=== PATIENT | male | born 1975 | race Caucasian/White ===

== ENCOUNTER 2017-06-27 18:28 | Emergency (ER) | payer BC, OTHER ==
[2017-06-27 18:44] VITALS: BP 131/83
--- NOTE | 2017-06-27 18:49 | EDM.PDOC ---
ED HPI GENERAL MEDICAL PROBLEM - General Chief Complaint: Laceration Stated Complaint: LACERATION TO HEAD Time Seen by Provider: 06/27/17 18:43 Source of Information: Reports: Patient History Limitations: Reports: No Limitations - History of Present Illness INITIAL COMMENTS - FREE TEXT/NARRATIVE: Patient was under his plane at his shop when he jillian and struck the right front side of his head. It did start to bleed. No LOC, no memory loss. No headache , nausea, or vomiting. No other complaints. Onset: Today, Sudden Location: Reports: Head Quality: Reports: Ache, Dull Severity: Mild - Related Data Allergies Allergy/AdvReac Type Severity Reaction Status Date / Time No Known Allergies Allergy Verified 06/27/17 18:41 Home Meds: Home Meds . [No Known Home Meds] 06/27/17 [History] ED ROS GENERAL - Review of Systems Review Of Systems: ROS reveals no pertinent complaints other than HPI. ED EXAM, SKIN/RASH Exam: See Below Exam Limited By: No Limitations General Appearance: Alert, WD/WN, No Apparent Distress Eye Exam: Bilateral Eye: EOMI, PERRL Head: Normocephalic, Other (1 cm laceration to upper right scalp) Neurological: Alert, Oriented, CN II-XII Intact, Normal Cognition, Normal Gait Skin: Warm, Dry, Wound/Incision Location, Skin: Head Front/Back Body Diagram: 1 - 1 cm laceration ED SKIN PROCEDURES - Laceration/Wound Repair Right Upper Anterior Head Lac/Wound length In cm: 1 Appearance: Superficial Distal NVT: Neuro & Vascular Intact Skin Prep: Chlorhexidine (Hibiciens) Exploration/Debridement/Repair: Wound Explored, In a Bloodless Field, No Foreign Material Found Closed with: Max (2) Sterile Dressing Applied: None Tetanus Status Addressed: Yes Complications: No Departure - Departure Time of Disposition: 18:50 Disposition: Home, Self-Care 01 Condition: Good Clinical Impression: Laceration of head without complication - Discharge Information Instructions: Laceration Care, Adult, [id number], Stitches, [place], or Adhesive Wound Closure, [id number], Wound Infection, [id number] Forms: ED Department Discharge Additional Instructions: Follow up in 7 days for staple removal at the clinic. They will remove them there. Watch for any signs of infection. I have included them in your handout Follow up with your primary provider as needed Please call us with any questions or concerns. - Problem List & Annotations (1) Laceration of head without complication SNOMED Code(s): 884556583 Code(s): S01.91XA - LACERATION W/O FOREIGN BODY OF UNSP PART OF HEAD, INIT Status: Acute Priority: Low Qualifiers: Encounter type: initial encounter Qualified Code(s): S01.91XA - Laceration without foreign body of unspecified part of head, initial encounter - Problem List Review Problem List Initiated/Reviewed/Updated: Yes - Assessment/Plan Assessment:: head laceration Plan: Follow up in 7 days for staple removal at the clinic. They will remove them there. Watch for any signs of infection. I have included them in your handout Follow up with your primary provider as needed Please call us with any questions or concerns.
== END 2017-06-27 19:01 | disposition home or self-care (01) ==
LOC: VM.ED 18:28
DX: S01.01XA Laceration without foreign body of scalp, initial encounter (principal); W22.8XXA Striking against or struck by other objects, initial encounter
CPT/HCPCS: 12001; 99282; 99282-GF-25